=== PATIENT | female | born 1945 | race Hispanic/Latino ===

== ENCOUNTER 2017-04-20 11:25 | Inpatient (IN) | payer MEDICARE ==
[~2017-04-20] VITALS: Ht 167.6 cm; Wt 107.8 kg
[~2017-04-20 11:25] MED LIST: BENZ1TAB10 PO; BUSP10TA3 PO; CEFU500T67 PO; FURO-152 PO; HALO2TAB PO
[2017-04-20 11:49] LABS: BASOPHILS % (AUTO) 0.4 % (0.0-5.0); EOSINOPHILS % (AUTO) 2.6 % (0.0-8.0); HEMATOCRIT 36.8 % (36-48); LYMPHOCYTES % (AUTO) 41.9 % (21.0-51.0); MEAN CORPUSCULAR HGB CONC 33.6 g/dL (32.0-36.0); MEAN CORPUSCULAR VOLUME 89.2 fL (79-99); MONOCYTES % (AUTO) 16.6 % (3.0-13.0); NEUTROPHILS % (AUTO) 38.5 % (40.0-77.0); PLATELET COUNT (AUTO) 122 K/uL (130-400); RED BLOOD CELL COUNT(AUTO) 4.13 MIL/uL (4.00-5.50); RED CELL DISTRIBUTION WIDTH 13.7 % (11.0-15.5); WHITE BLOOD COUNT (AUTO) 5.5 K/uL (4.8-10.8)
[2017-04-20] MEDS ORDERED: DICYCLOMINE HCL 20 MG TAB ONE (11:53)
[2017-04-20 12:00] LABS: CREATININE 0.5 mg/dL (0.5-1.5); POTASSIUM 4.7 mmol/L (3.5-5.1)
[2017-04-20 12:06] LABS: ALBUMIN 2.6 g/dL (3.5-5.0); BILIRUBIN,DIRECT 0.2 mg/dL (0.0-0.3); BILIRUBIN,TOTAL 0.8 mg/dL (0.2-1.0); TOTAL PROTEIN, SERUM 7.1 g/dL (6.0-8.3)
[2017-04-20 15:07] LABS: APPEARANCE,URINE Clear (CLEAR); BILIRUBIN,URINE Negative (NEGATIVE); COLOR,URINE Yellow (YELLOW); GLUCOSE, URINE (UA) Negative (NEGATIVE); KETONES,URINE Negative (NEGATIVE); LEUKOCYTE ESTERASE ,URINE Negative (NEGATIVE); NITRATE,URINE Negative (NEGATIVE); OCCULT BLOOD,URINE Small (NEGATIVE); PH,URINE 6.5 (5.0-8.0); PROTEIN,URINE Negative (NEGATIVE)
[2017-04-20 15:17] LABS: BACTERIA,URINE None Seen /HPF (None Seen); RBC,URINE 0-1 /HPF (0-1); TRANSITIONAL EPI CELLS,URINE Moderate /LPF (None Seen); WBC,URINE None Seen /HPF (0-1)
[2017-04-20] MEDS ORDERED: LACTULOSE 20 GM/30 ML UDCUP PO PRN (15:30)
[2017-04-20] MEDS ORDERED: ACETAMINOPHEN 325 MG TAB PO PRN (15:30)
[2017-04-20] MEDS ORDERED: NITROGLYCERIN 0.4 MG SL TAB SL PRN (15:30)
[2017-04-20] MEDS ORDERED: ACETAMINOPHEN-CODEINE 300/30MG TAB PO PRN ×2 (15:30)
[2017-04-20] MEDS ORDERED: MORPHINE SULFATE 2 MG/ML 1ML SYG IV PRN (15:30)
[2017-04-20] MEDS ORDERED: MAGNESIUM HYDROXIDE 30 ML/UDCUP PO PRN (15:30)
[2017-04-20] MEDS ORDERED: GUAIFENESIN-DM 200/20 MG 10 ML PO PRN (15:30)
[2017-04-20] MEDS ORDERED: ONDANSETRON HCL 4 MG/2 ML VIAL IV PRN (15:30)
[2017-04-20] MEDS ORDERED: HYDRALAZINE HCL 20 MG/ML VIAL IV PRN (15:30)
[2017-04-20] MEDS ORDERED: MORPHINE SULFATE 4 MG/1ML SYG IV PRN (15:30)
[2017-04-20] MEDS ORDERED: MAG HYDROX/AL HYDROX/SIMETH ES 30 ML SUSP UDCUP PO PRN (15:30)
[2017-04-20] MEDS ORDERED: LEVOFLOXACIN 500 MG/D5W 100 ML 100 ML ONE (17:17)
[2017-04-20] MEDS: IPRATROPIUM/ALBUTEROL SULFATE 3 ML SOLUTION IH SCH ×2 (18:32→23:45)
[2017-04-20] MEDS ORDERED: IPRATROPIUM/ALBUTEROL SULFATE 3 ML SOLUTION IH ONE (23:39)
[2017-04-21] MEDS ORDERED: FAMOTIDINE/PF 20 MG/2 ML VIAL IV ONE ×2 (00:20→08:05)
[2017-04-21] MEDS ORDERED: ACETAMINOPHEN 325 MG TAB ONE ×2 (00:20→09:47)
[2017-04-21 05:41] LABS: HEMATOCRIT 32.5 % (36-48); MEAN CORPUSCULAR HEMOGLOBIN 29.6 pg (27.0-33.0); MEAN CORPUSCULAR HGB CONC 33.3 g/dL (32.0-36.0); PLATELET COUNT (AUTO) 123 K/uL (130-400); RED BLOOD CELL COUNT(AUTO) 3.66 MIL/uL (4.00-5.50); WHITE BLOOD COUNT (AUTO) 4.1 K/uL (4.8-10.8)
[2017-04-21 06:01] LABS: B-TYPE NATRIURETIC PEPTIDE 209 pg/mL (0-100)
[2017-04-21] MEDS: IPRATROPIUM/ALBUTEROL SULFATE 3 ML SOLUTION IH SCH ×3 (07:12→19:09)
[2017-04-21 08:57] LABS: INR 1.13 (0.85-1.15); PROTHROMBIN TIME 11.8 SEC (9.6-11.6)
[2017-04-21 11:30] VITALS: BP 136/70
[2017-04-21] MEDS ORDERED: GABA-529 PO (13:04)
[2017-04-21] MEDS ORDERED: LOSA25TA21 PO (13:04)
[2017-04-21] MEDS ORDERED: CARB-38 PO (13:04)
[2017-04-21] MEDS ORDERED: FURO20TA4 PO (13:04)
[2017-04-21 14:08] LABS: GLUCOSE,BODY FLUID 88 mg/dL (1-40)
[2017-04-21] MEDS: LEVOFLOXACIN 500 MG/D5W 100 ML 100 ML IV SCH ×2 (14:36→16:00)
[2017-04-21 16:00] VITALS: BP 147/62
[2017-04-21 16:01] LABS: SPECIMENTYPE,BODY FLUID PLEURAL
[2017-04-21 16:02] LABS: APPEARANCE BODY FLUID SLIGHTLY CLOUDY (CLEAR); BODY FLUID RBC 400 /cu. mm.; BODY FLUID WBC 207 /cu. mm.; COLOR,BODY FLUID YELLOW (LT YELLOW); TOTAL VOLUME,BODY FLUID 700 mL
[2017-04-21 16:21] LABS: BF LYMPHOCYTE 91 %
[2017-04-21 19:50] VITALS: BP 112/53
[2017-04-21] MEDS: FAMOTIDINE/PF 20 MG/2 ML VIAL IV SCH (21:00)
[2017-04-22 00:15] VITALS: BP 112/58
[2017-04-22] MEDS: FAMOTIDINE/PF 20 MG/2 ML VIAL IV SCH ×4 (00:22→21:36)
[2017-04-22] MEDS: IPRATROPIUM/ALBUTEROL SULFATE 3 ML SOLUTION IH SCH ×4 (00:39→19:21)
[2017-04-22 03:47] VITALS: BP 112/52
[2017-04-22 08:00] VITALS: BP 126/57
[2017-04-22] MEDS: FUROSEMIDE 10 MG/ML 2ML VIAL IV SCH ×2 (10:26→21:36)
[2017-04-22 12:00] VITALS: BP 104/66
[2017-04-22] MEDS: ACETAMINOPHEN 325 MG TAB PO PRN (12:50)
[2017-04-22] MEDS: CARBIDOPA-LEVODOPA 25-100 TAB PO SCH ×2 (14:54→21:35)
[2017-04-22] MEDS: LEVOFLOXACIN 500 MG/D5W 100 ML 100 ML IV SCH (14:54)
[2017-04-22 16:00] VITALS: BP 137/63
[2017-04-22 20:00] VITALS: BP 145/73
[2017-04-22] MEDS: GABAPENTIN 100 MG CAPSULE PO SCH (21:36)
[2017-04-23] VITALS (7 sets, daily range): BP systolic 119–148; BP diastolic 64–84
[2017-04-23] MEDS: IPRATROPIUM/ALBUTEROL SULFATE 3 ML SOLUTION IH SCH ×5 (01:27→23:30)
[2017-04-23 03:59] LABS: MEAN CORPUSCULAR HEMOGLOBIN 30.1 pg (27.0-33.0); MEAN CORPUSCULAR VOLUME 88.6 fL (79-99); PLATELET COUNT (AUTO) 105 K/uL (130-400); RED CELL DISTRIBUTION WIDTH 13.8 % (11.0-15.5); WHITE BLOOD COUNT (AUTO) 4.6 K/uL (4.8-10.8)
[2017-04-23 04:05] LABS: CREATININE 0.6 mg/dL (0.5-1.5)
[2017-04-23 04:27] LABS: B-TYPE NATRIURETIC PEPTIDE 161 pg/mL (0-100)
[2017-04-23] MEDS: CARBIDOPA-LEVODOPA 25-100 TAB PO SCH ×3 (09:22→21:16)
[2017-04-23] MEDS: FAMOTIDINE/PF 20 MG/2 ML VIAL IV SCH ×2 (09:22→21:16)
[2017-04-23] MEDS: GABAPENTIN 100 MG CAPSULE PO SCH ×2 (09:22→21:16)
[2017-04-23] MEDS: LOSARTAN 50 MG TABLET PO SCH (09:22)
[2017-04-23] MEDS: FUROSEMIDE 10 MG/ML 2ML VIAL IV SCH ×2 (09:26→21:15)
[2017-04-23] MEDS: LEVOFLOXACIN 500 MG/D5W 100 ML 100 ML IV SCH (16:37)
[2017-04-24] VITALS (9 sets, daily range): BP systolic 115–145; BP diastolic 51–96
[2017-04-24] MEDS: IPRATROPIUM/ALBUTEROL SULFATE 3 ML SOLUTION IH SCH ×3 (06:07→19:06)
[2017-04-24 06:49] LABS: HEMATOCRIT 33.8 % (36-48); MEAN CORPUSCULAR HEMOGLOBIN 30.1 pg (27.0-33.0); MEAN CORPUSCULAR HGB CONC 33.9 g/dL (32.0-36.0); MEAN CORPUSCULAR VOLUME 88.8 fL (79-99); PLATELET COUNT (AUTO) 104 K/uL (130-400); RED CELL DISTRIBUTION WIDTH 13.8 % (11.0-15.5)
[2017-04-24 07:00] LABS: CREATININE 0.6 mg/dL (0.5-1.5)
[2017-04-24] MEDS: LOSARTAN 50 MG TABLET PO SCH (09:25)
[2017-04-24] MEDS: FAMOTIDINE/PF 20 MG/2 ML VIAL IV SCH ×2 (09:25→22:32)
[2017-04-24] MEDS: GABAPENTIN 100 MG CAPSULE PO SCH ×2 (09:25→22:31)
[2017-04-24] MEDS: CARBIDOPA-LEVODOPA 25-100 TAB PO SCH ×3 (09:25→22:31)
[2017-04-24] MEDS: FUROSEMIDE 10 MG/ML 2ML VIAL IV SCH ×2 (09:39→22:32)
[2017-04-24 11:48] LABS: INR 1.14 (0.85-1.15); PROTHROMBIN TIME 11.9 SEC (9.6-11.6)
[2017-04-24] MEDS: LEVOFLOXACIN 500 MG/D5W 100 ML 100 ML IV SCH (16:49)
[2017-04-25] VITALS: BP 124/64
[2017-04-25] MEDS: IPRATROPIUM/ALBUTEROL SULFATE 3 ML SOLUTION IH SCH ×5 (00:18→23:49)
[2017-04-25 04:00] VITALS: BP 128/70
[2017-04-25 08:00] VITALS: BP 110/54
[2017-04-25] MEDS: FAMOTIDINE/PF 20 MG/2 ML VIAL IV SCH ×2 (10:40→21:14)
[2017-04-25] MEDS: LOSARTAN 50 MG TABLET PO SCH (10:41)
[2017-04-25] MEDS: FUROSEMIDE 10 MG/ML 2ML VIAL IV SCH ×2 (10:41→21:14)
[2017-04-25] MEDS: GABAPENTIN 100 MG CAPSULE PO SCH ×2 (10:41→21:14)
[2017-04-25 11:00] VITALS: BP 151/68
[2017-04-25] MEDS: CARBIDOPA-LEVODOPA 25-100 TAB PO SCH ×3 (11:01→21:14)
[2017-04-25 16:00] VITALS: BP 138/51
[2017-04-25] MEDS: LEVOFLOXACIN 500 MG/D5W 100 ML 100 ML IV SCH (17:56)
[2017-04-25 20:10] VITALS: BP 114/63
[2017-04-25] MEDS: ACETAMINOPHEN 325 MG TAB PO PRN (21:15)
[2017-04-26] VITALS (7 sets, daily range): BP systolic 111–136; BP diastolic 50–73
[2017-04-26 04:44] LABS: HEMATOCRIT 31.7 % (36-48); MEAN CORPUSCULAR HEMOGLOBIN 30.7 pg (27.0-33.0); MEAN CORPUSCULAR HGB CONC 34.8 g/dL (32.0-36.0); MEAN CORPUSCULAR VOLUME 88.3 fL (79-99); NUCLEATED RED BLOOD CELLS 0.1 % (0.0-0.19); PLATELET COUNT (AUTO) 121 K/uL (130-400); RED BLOOD CELL COUNT(AUTO) 3.59 MIL/uL (4.00-5.50); RED CELL DISTRIBUTION WIDTH 13.5 % (11.0-15.5); WHITE BLOOD COUNT (AUTO) 4.9 K/uL (4.8-10.8)
[2017-04-26 04:50] LABS: B-TYPE NATRIURETIC PEPTIDE 108 pg/mL (0-100)
[2017-04-26] MEDS: IPRATROPIUM/ALBUTEROL SULFATE 3 ML SOLUTION IH SCH ×4 (06:30→23:33)
[2017-04-26] MEDS: LOSARTAN 50 MG TABLET PO SCH (10:58)
[2017-04-26] MEDS: GABAPENTIN 100 MG CAPSULE PO SCH ×2 (10:58→21:48)
[2017-04-26] MEDS: CARBIDOPA-LEVODOPA 25-100 TAB PO SCH ×3 (10:58→21:48)
[2017-04-26] MEDS: FAMOTIDINE/PF 20 MG/2 ML VIAL IV SCH ×2 (10:59→21:48)
[2017-04-26] MEDS: FUROSEMIDE 10 MG/ML 2ML VIAL IV SCH (11:00)
[2017-04-26] MEDS: LEVOFLOXACIN 500 MG/D5W 100 ML 100 ML IV SCH (18:13)
[2017-04-26] MEDS: FUROSEMIDE 40 MG TABLET PO SCH (18:13)
[2017-04-26] MEDS ORDERED: SODIUM CHLORIDE 0.9% 250 ML IV ONE (22:31)
[2017-04-27 03:05] VITALS: BP 146/65
[2017-04-27] MEDS: IPRATROPIUM/ALBUTEROL SULFATE 3 ML SOLUTION IH SCH ×2 (06:22→11:02)
[2017-04-27 07:00] VITALS: BP 142/71
[2017-04-27] MEDS: FAMOTIDINE/PF 20 MG/2 ML VIAL IV SCH (09:06)
[2017-04-27] MEDS: LOSARTAN 50 MG TABLET PO SCH (09:07)
[2017-04-27] MEDS: FUROSEMIDE 40 MG TABLET PO SCH (09:08)
[2017-04-27] MEDS: GABAPENTIN 100 MG CAPSULE PO SCH (09:08)
[2017-04-27] MEDS ORDERED: LEVO500T2 PO (09:59)
[2017-04-27 11:00] VITALS: BP 136/64
[2017-04-27 16:00] VITALS: BP 118/63
== END 2017-04-27 15:55 | disposition home or self-care (01) | DRG 194 ==
LOC: EDH 11:25 → EDHIP 14:47 → OBSVTOIN 14:47 → 3BH 04-21 11:30
PROVIDERS: ADMIT Internal Medicine; ATTEND Internal Medicine
PROC: 0W9B3ZZ Drainage of Left Pleural Cavity, Percutaneous Approach (ICD-10-PCS; 2017-04-21)
PROC: 0W9B3ZZ Drainage of Left Pleural Cavity, Percutaneous Approach (ICD-10-PCS; principal; 2017-04-24)
DX: J18.9 Pneumonia, unspecified organism (principal); J90 Pleural effusion, not elsewhere classified; G20 Parkinson's disease; I50.9 Heart failure, unspecified; F20.9 Schizophrenia, unspecified; D64.9 Anemia, unspecified; K59.00 Constipation, unspecified; E66.9 Obesity, unspecified; G51.0 Bell's palsy; F31.9 Bipolar disorder, unspecified; Z86.73 Personal history of transient ischemic attack (TIA), and cerebral infarction without residual deficits; Z87.891 Personal history of nicotine dependence; Z68.38 Body mass index [BMI] 38.0-38.9, adult; Z98.49 Cataract extraction status, unspecified eye; Z28.21 Immunization not carried out because of patient refusal
CPT/HCPCS: 32554; 32555; 36415; 71045; 71046; 71250; 74176; 80048; 80076; 81001; 82945; 82948; 83615; 83690; 83880; 83986; 84157; 85025; 85027; 85610; 85730; 87040; 87071; 87205; 87804; 88108; 88305; 89051; 92610; 93306; 93970; 94640; 94664; J1940; J1956; J3490; J7030

== ENCOUNTER 2017-08-04 09:12 | Emergency (ER) | payer MEDICARE ==
[~2017-08-04 09:12] MED LIST changes: -BENZ1TAB10 PO; -BUSP10TA3 PO; +CARB-38 PO; -CEFU500T67 PO; -FURO-152 PO; +FURO20TA4 PO; +GABA-529 PO; -HALO2TAB PO; +LEVO500T2 PO; +LOSA25TA21 PO
[2017-08-04 09:48] LABS: APPEARANCE,URINE Clear (CLEAR); BILIRUBIN,URINE Negative (NEGATIVE); COLOR,URINE Yellow (YELLOW); GLUCOSE, URINE (UA) Negative (NEGATIVE); KETONES,URINE Negative (NEGATIVE); LEUKOCYTE ESTERASE ,URINE Trace (NEGATIVE); NITRATE,URINE Negative (NEGATIVE); OCCULT BLOOD,URINE Negative (NEGATIVE); PH,URINE 6.5 (5.0-8.0); PROTEIN,URINE Negative (NEGATIVE)
[2017-08-04 10:02] LABS: BACTERIA,URINE Rare /HPF (None Seen); SQUAMOUS EPITHELIAL CELL,UR Rare /HPF (0-2); WBC,URINE 0-1 /HPF (0-1)
[2017-08-04 10:22] LABS: INR 1.14 (0.85-1.15); PARTIAL THROMBOPLASTIN TIME 28.3 SEC (26.3-35.5); PROTHROMBIN TIME 11.9 SEC (9.6-11.6)
[2017-08-04 10:49] LABS: ALBUMIN 2.2 g/dL (3.5-5.0); BILIRUBIN,DIRECT 0.2 mg/dL (0.0-0.3); BILIRUBIN,TOTAL 0.5 mg/dL (0.2-1.0); CREATININE 0.6 mg/dL (0.5-1.5); POTASSIUM 3.5 mmol/L (3.5-5.1); TOTAL PROTEIN, SERUM 6.8 g/dL (6.0-8.3)
[2017-08-04 12:31] LABS: BASOPHILS % (AUTO) 0.5 % (0.0-5.0); EOSINOPHILS % (AUTO) 1.7 % (0.0-8.0); HEMATOCRIT 34.5 % (36-48); LYMPHOCYTES % (AUTO) 18.5 % (21.0-51.0); MEAN CORPUSCULAR HEMOGLOBIN 29.5 pg (27.0-33.0); MEAN CORPUSCULAR HGB CONC 33.7 g/dL (32.0-36.0); MEAN CORPUSCULAR VOLUME 87.6 fL (79-99); MONOCYTES % (AUTO) 16.5 % (3.0-13.0); NEUTROPHILS % (AUTO) 62.8 % (40.0-77.0); PLATELET COUNT (AUTO) 148 K/uL (130-400); RED BLOOD CELL COUNT(AUTO) 3.94 MIL/uL (4.00-5.50); RED CELL DISTRIBUTION WIDTH 13.9 % (11.0-15.5)
== END 2017-08-04 13:29 | disposition home or self-care (01) ==
LOC: EDH 09:12
DX: K64.4 Residual hemorrhoidal skin tags (principal); I50.9 Heart failure, unspecified; G20 Parkinson's disease; Z86.73 Personal history of transient ischemic attack (TIA), and cerebral infarction without residual deficits; Z87.891 Personal history of nicotine dependence
CPT/HCPCS: 36415; 80048; 80076; 81001; 85025; 85610; 85730

== ENCOUNTER 2017-09-07 15:54 | Inpatient (IN) | payer MEDICARE ==
[~2017-09-07] VITALS: Ht 157.5 cm; Wt 111.1 kg
[2017-09-07 16:37] LABS: BASOPHILS % (AUTO) 0.7 % (0.0-5.0); EOSINOPHILS % (AUTO) 3.2 % (0.0-8.0); HEMATOCRIT 35.5 % (36-48); LYMPHOCYTES % (AUTO) 37.9 % (21.0-51.0); MEAN CORPUSCULAR HEMOGLOBIN 29.5 pg (27.0-33.0); MEAN CORPUSCULAR HGB CONC 33.9 g/dL (32.0-36.0); MONOCYTES % (AUTO) 18.2 % (3.0-13.0); NUCLEATED RED BLOOD CELLS 0.1 % (0.0-0.19); PLATELET COUNT (AUTO) 170 K/uL (130-400); RED BLOOD CELL COUNT(AUTO) 4.08 MIL/uL (4.00-5.50); RED CELL DISTRIBUTION WIDTH 13.9 % (11.0-15.5); WHITE BLOOD COUNT (AUTO) 6.3 K/uL (4.8-10.8)
[2017-09-07] MEDS ORDERED: HYOSCYAMINE SULFATE 0.125 MG TAB.SUBL SL ONE (16:40)
[2017-09-07] MEDS ORDERED: ONDANSETRON HCL 4 MG/2 ML VIAL ONE (16:46)
[2017-09-07] MEDS ORDERED: MORPHINE SULFATE 4 MG/1ML SYG ONE ×2 (16:47→22:25)
[2017-09-07 16:53] LABS: CREATININE 0.7 mg/dL (0.5-1.5); POTASSIUM 4.3 mmol/L (3.5-5.1)
[2017-09-07 16:58] LABS: ALBUMIN 2.3 g/dL (3.5-5.0); BILIRUBIN,TOTAL 0.4 mg/dL (0.2-1.0)
[2017-09-07 18:22] LABS: APPEARANCE,URINE CLEAR (CLEAR); BILIRUBIN,URINE NEGATIVE (NEGATIVE); COLOR,URINE YELLOW (YELLOW); GLUCOSE, URINE (UA) NEGATIVE (NEGATIVE); KETONES,URINE NEGATIVE (NEGATIVE); LEUKOCYTE ESTERASE ,URINE SMALL (NEGATIVE); NITRATE,URINE NEGATIVE (NEGATIVE); OCCULT BLOOD,URINE TRACE-LYSED (NEGATIVE); PROTEIN,URINE NEGATIVE (NEGATIVE); UROBILINOGEN,URINE 0.2 mg/dL (0.2-1.0)
[2017-09-07 19:27] LABS: BACTERIA,URINE Few /HPF (None Seen); SQUAMOUS EPITHELIAL CELL,UR Few /HPF (0-2)
[2017-09-07 19:28] LABS: AMORPHOUS SEDIMENT,UR Rare /LPF (None Seen)
[2017-09-07] MEDS ORDERED: CEPHALEXIN 500 MG CAPSULE ONE (19:57)
[2017-09-07] MEDS ORDERED: IPRATROPIUM/ALBUTEROL SULFATE 3 ML SOLUTION IH PRN ×2 (20:00)
[2017-09-07] MEDS ORDERED: ONDANSETRON HCL MDV 20ML 2 MG/ML VIAL IVP PRN (20:00)
[2017-09-07] MEDS ORDERED: NITROGLYCERIN 0.4 MG SL TAB SL PRN (20:00)
[2017-09-07] MEDS ORDERED: MORPHINE SULFATE 4 MG/1ML SYG IVP PRN (20:00)
[2017-09-07] MEDS ORDERED: POTASSIUM CHLORIDE 10% ELIXIR 20 MEQ/15 ML UDCUP PO PRN (20:00)
[2017-09-07] MEDS ORDERED: LIDOCAINE HCL-MPF 1% 2ML VIAL IJ PRN (20:00)
[2017-09-07] MEDS ORDERED: GUAIFENESIN-DM 200/20 MG 10 ML PO PRN (20:00)
[2017-09-07] MEDS ORDERED: CLONIDINE HCL 0.1 MG TABLET PO PRN (20:00)
[2017-09-07] MEDS ORDERED: POTASSIUM CHLORIDE 20MEQ/100ML 100 ML IV PRN (20:00)
[2017-09-07] MEDS ORDERED: ACETAMINOPHEN 325 MG TAB PO PRN (20:00)
[2017-09-07] MEDS ORDERED: POTASSIUM CHLORIDE 20 MEQ ERTAB PO PRN (20:00)
[2017-09-07] MEDS: FAMOTIDINE 20MG TAB 20 MG TAB PO SCH (21:00)
[2017-09-08] VITALS (7 sets, daily range): BP systolic 103–149; BP diastolic 44–73
[2017-09-08] MEDS ORDERED: LACTULOSE 20 GM/30 ML UDCUP PO PRN (01:00)
[2017-09-08] MEDS ORDERED: SODIUM CHLORIDE 0.9% 500ML 500 ML IV ONE (02:47)
[2017-09-08] MEDS: LEVOFLOXACIN 500 MG/D5W 100 ML 100 ML IV SCH (02:51)
[2017-09-08 04:25] LABS: HEMATOCRIT 32.9 % (36-48); MEAN CORPUSCULAR HEMOGLOBIN 29.6 pg (27.0-33.0); MEAN CORPUSCULAR HGB CONC 33.9 g/dL (32.0-36.0); MEAN CORPUSCULAR VOLUME 87.1 fL (79-99); PLATELET COUNT (AUTO) 136 K/uL (130-400); RED BLOOD CELL COUNT(AUTO) 3.78 MIL/uL (4.00-5.50); RED CELL DISTRIBUTION WIDTH 14.2 % (11.0-15.5); WHITE BLOOD COUNT (AUTO) 4.9 K/uL (4.8-10.8)
[2017-09-08 04:40] LABS: INR 1.12 (0.85-1.15); PROTHROMBIN TIME 11.7 SEC (9.6-11.6)
[2017-09-08 04:41] LABS: CREATININE 0.7 mg/dL (0.5-1.5); POTASSIUM 4.2 mmol/L (3.5-5.1)
[2017-09-08] MEDS: FAMOTIDINE 20MG TAB 20 MG TAB PO SCH ×2 (09:09→20:18)
[2017-09-08] MEDS ORDERED: OMEP40CA37 PO (09:42)
[2017-09-08] MEDS ORDERED: FERR325T22 PO (09:42)
[2017-09-08] MEDS: ACETAMINOPHEN 325 MG TAB PO PRN (10:14)
[2017-09-08] MEDS: METHYLPREDNISOLONE SOD SUCC 125MG/2ML VIAL IVP SCH ×2 (12:32→20:18)
[2017-09-08] MEDS: CARBIDOPA-LEVODOPA 25-100 TAB PO SCH ×2 (14:00→20:18)
[2017-09-08] MEDS: IPRATROPIUM/ALBUTEROL SULFATE 3 ML SOLUTION IH SCH ×3 (14:17→23:22)
[2017-09-08] MEDS: GABAPENTIN 100 MG CAPSULE PO SCH (20:18)
[2017-09-09] MEDS: LEVOFLOXACIN 500 MG/D5W 100 ML 100 ML IV SCH (02:04)
[2017-09-09 03:00] VITALS: BP 129/54
[2017-09-09 04:25] LABS: HEMATOCRIT 33.6 % (36-48); LYMPHOCYTES % (AUTO) 16.7 % (21.0-51.0); MEAN CORPUSCULAR HEMOGLOBIN 30.6 pg (27.0-33.0); MEAN CORPUSCULAR HGB CONC 35.4 g/dL (32.0-36.0); MEAN CORPUSCULAR VOLUME 86.6 fL (79-99); NEUTROPHILS % (AUTO) 83.3 % (40.0-77.0); NUCLEATED RED BLOOD CELLS 0.1 % (0.0-0.19); PLATELET COUNT (AUTO) 151 K/uL (130-400); RED BLOOD CELL COUNT(AUTO) 3.88 MIL/uL (4.00-5.50); RED CELL DISTRIBUTION WIDTH 14.2 % (11.0-15.5); WHITE BLOOD COUNT (AUTO) 4.8 K/uL (4.8-10.8)
[2017-09-09 04:55] LABS: B-TYPE NATRIURETIC PEPTIDE 677 pg/mL (0-100)
[2017-09-09 05:26] LABS: ALBUMIN 2.2 g/dL (3.5-5.0); BILIRUBIN,TOTAL 0.5 mg/dL (0.2-1.0); CREATININE 0.7 mg/dL (0.5-1.5); MAGNESIUM 2.1 mg/dL (1.80-2.40); POTASSIUM 4.3 mmol/L (3.5-5.1)
[2017-09-09] MEDS: METHYLPREDNISOLONE SOD SUCC 125MG/2ML VIAL IVP SCH ×3 (05:50→22:13)
[2017-09-09] MEDS: IPRATROPIUM/ALBUTEROL SULFATE 3 ML SOLUTION IH SCH ×3 (06:04→18:21)
[2017-09-09 07:00] VITALS: BP 132/48
[2017-09-09] MEDS ORDERED: ISOVUE-370 50ML VIAL IV ONE (08:34)
[2017-09-09] MEDS: FERROUS SULFATE 325 MG TABLET.DR PO SCH (09:45)
[2017-09-09] MEDS: FAMOTIDINE 20MG TAB 20 MG TAB PO SCH ×2 (09:45→22:12)
[2017-09-09] MEDS: GABAPENTIN 100 MG CAPSULE PO SCH ×2 (09:45→22:12)
[2017-09-09] MEDS: CARBIDOPA-LEVODOPA 25-100 TAB PO SCH ×3 (09:45→22:12)
[2017-09-09] MEDS: LOSARTAN 50 MG TABLET PO SCH (09:45)
[2017-09-09] MEDS: FUROSEMIDE 20 MG TABLET PO SCH (09:45)
[2017-09-09] MEDS: ENOXAPARIN SODIUM 40 MG/0.4 ML SYRINGE SQ SCH (09:46)
[2017-09-09] MEDS: ACETAMINOPHEN 325 MG TAB PO PRN ×2 (10:52→19:54)
[2017-09-09 11:00] VITALS: BP 145/64
[2017-09-09 15:28] VITALS: BP 132/60
[2017-09-09 19:00] VITALS: BP 129/60
[2017-09-10] VITALS: BP 154/81
[2017-09-10] MEDS: IPRATROPIUM/ALBUTEROL SULFATE 3 ML SOLUTION IH SCH ×4 (00:45→18:30)
[2017-09-10] MEDS: LEVOFLOXACIN 500 MG/D5W 100 ML 100 ML IV SCH (01:32)
[2017-09-10 04:00] VITALS: BP 153/66
[2017-09-10 07:00] VITALS: BP 123/60
[2017-09-10] MEDS: FUROSEMIDE 20 MG TABLET PO SCH (09:32)
[2017-09-10] MEDS: LOSARTAN 50 MG TABLET PO SCH (09:32)
[2017-09-10] MEDS: GABAPENTIN 100 MG CAPSULE PO SCH ×2 (09:33→21:34)
[2017-09-10] MEDS: FERROUS SULFATE 325 MG TABLET.DR PO SCH (09:33)
[2017-09-10] MEDS: CARBIDOPA-LEVODOPA 25-100 TAB PO SCH ×3 (09:33→21:34)
[2017-09-10] MEDS: FAMOTIDINE 20MG TAB 20 MG TAB PO SCH ×2 (09:33→21:34)
[2017-09-10] MEDS: METHYLPREDNISOLONE SOD SUCC 125MG/2ML VIAL IVP SCH ×2 (09:34→21:33)
[2017-09-10] MEDS: ENOXAPARIN SODIUM 40 MG/0.4 ML SYRINGE SQ SCH (09:35)
[2017-09-10 11:00] VITALS: BP 128/59
[2017-09-10 15:30] VITALS: BP 135/70
[2017-09-10 19:00] VITALS: BP 140/69
[2017-09-11] VITALS: BP 143/73
[2017-09-11] MEDS: IPRATROPIUM/ALBUTEROL SULFATE 3 ML SOLUTION IH SCH ×4 (00:27→18:42)
[2017-09-11 04:00] VITALS: BP 153/59
[2017-09-11 05:44] LABS: HEMATOCRIT 34.8 % (36-48); MEAN CORPUSCULAR HEMOGLOBIN 29.8 pg (27.0-33.0); MEAN CORPUSCULAR HGB CONC 34.4 g/dL (32.0-36.0); MEAN CORPUSCULAR VOLUME 86.8 fL (79-99); PLATELET COUNT (AUTO) 147 K/uL (130-400); RED BLOOD CELL COUNT(AUTO) 4.01 MIL/uL (4.00-5.50); RED CELL DISTRIBUTION WIDTH 14.3 % (11.0-15.5); WHITE BLOOD COUNT (AUTO) 9.4 K/uL (4.8-10.8)
[2017-09-11 05:57] LABS: CREATININE 0.7 mg/dL (0.5-1.5); MAGNESIUM 2.2 mg/dL (1.80-2.40); PHOSPHORUS 2.8 mg/dL (2.5-4.9); POTASSIUM 5.1 mmol/L (3.5-5.1)
[2017-09-11 07:00] VITALS: BP 128/92
[2017-09-11] MEDS: LOSARTAN 50 MG TABLET PO SCH (09:29)
[2017-09-11] MEDS: FAMOTIDINE 20MG TAB 20 MG TAB PO SCH ×2 (09:29→21:51)
[2017-09-11] MEDS: FERROUS SULFATE 325 MG TABLET.DR PO SCH (09:29)
[2017-09-11] MEDS: CARBIDOPA-LEVODOPA 25-100 TAB PO SCH ×3 (09:29→21:51)
[2017-09-11] MEDS: FUROSEMIDE 20 MG TABLET PO SCH (09:29)
[2017-09-11] MEDS: GABAPENTIN 100 MG CAPSULE PO SCH ×2 (09:29→21:51)
[2017-09-11] MEDS: ENOXAPARIN SODIUM 40 MG/0.4 ML SYRINGE SQ SCH (09:33)
[2017-09-11] MEDS: METHYLPREDNISOLONE SOD SUCC 125MG/2ML VIAL IVP SCH ×2 (09:55→21:51)
[2017-09-11 11:00] VITALS: BP 111/61
[2017-09-11] MEDS: LEVOFLOXACIN 500 MG/D5W 100 ML 100 ML IV SCH (12:16)
[2017-09-11] MEDS ORDERED: LEVO750T46 PO (15:32)
[2017-09-11] MEDS ORDERED: ALBU8.5H8 IH (15:32)
[2017-09-11] MEDS ORDERED: PRED20TA3 PO (15:32)
[2017-09-11 15:33] VITALS: BP 143/50
[2017-09-11 19:00] VITALS: BP 142/67
[2017-09-12] VITALS: BP 150/86
[2017-09-12] MEDS: IPRATROPIUM/ALBUTEROL SULFATE 3 ML SOLUTION IH SCH ×2 (00:01→06:38)
[2017-09-12 04:00] VITALS: BP 137/60
[2017-09-12 08:07] VITALS: BP 100/67
[2017-09-12] MEDS: LEVOFLOXACIN 500 MG/D5W 100 ML 100 ML IV SCH (08:15)
[2017-09-12] MEDS: METHYLPREDNISOLONE SOD SUCC 125MG/2ML VIAL IVP SCH (08:38)
[2017-09-12] MEDS: FAMOTIDINE 20MG TAB 20 MG TAB PO SCH (08:38)
[2017-09-12] MEDS: GABAPENTIN 100 MG CAPSULE PO SCH (08:38)
[2017-09-12] MEDS: FUROSEMIDE 20 MG TABLET PO SCH (08:39)
[2017-09-12] MEDS: CARBIDOPA-LEVODOPA 25-100 TAB PO SCH (08:39)
[2017-09-12] MEDS: FERROUS SULFATE 325 MG TABLET.DR PO SCH (08:39)
[2017-09-12] MEDS: LOSARTAN 50 MG TABLET PO SCH (08:39)
[2017-09-12] MEDS: ENOXAPARIN SODIUM 40 MG/0.4 ML SYRINGE SQ SCH (08:40)
[2017-09-12 11:51] VITALS: BP 156/72
== END 2017-09-12 12:05 | disposition home or self-care (01) | DRG 689 ==
LOC: EDH 15:54 → OBSVTOIN 19:35 → EDHIP 19:35 → 3BH 09-08 00:50
PROVIDERS: ADMIT Internal Medicine; ATTEND Internal Medicine
DX: N39.0 Urinary tract infection, site not specified (principal); J18.1 Lobar pneumonia, unspecified organism; G20 Parkinson's disease; I50.32 Chronic diastolic (congestive) heart failure; I69.351 Hemiplegia and hemiparesis following cerebral infarction affecting right dominant side; F20.9 Schizophrenia, unspecified; R13.10 Dysphagia, unspecified; E44.1 Mild protein-calorie malnutrition; J98.11 Atelectasis; F31.9 Bipolar disorder, unspecified; G51.0 Bell's palsy; Z87.891 Personal history of nicotine dependence; Z98.49 Cataract extraction status, unspecified eye
CPT/HCPCS: 36415; 71250; 71260; 74176; 76770; 80048; 80053; 81001; 82150; 83690; 83735; 83880; 84100; 85025; 85027; 85610; 87088; 93005; 94640; 94664; 97039; J1650; J1956; J2270; J2405; J2930; J7040; Q9967

== ENCOUNTER → 2019-05-01 | Outpatient (CLI) | payer OTHER ==
[2019-05-01] VITALS (11 sets, daily range): BP systolic 106–139; BP diastolic 50–119
[~2019-05-01] MED LIST changes: +ACET325T51 PO; +ALBU0.63 IH; +CARB1TAB20 PO; +CEPH500C2 PO; +CEPH500T PO; +FERR-6 PO; +FERR325T22 PO; +FURO20TA6 IV; +FURO20TA6 PO; +FURO40SO4 IVP; +GUAI100S13 PO; +HYDR25SU7 RC; +IPRA0.2S54 IH; +IPRATROPIUM/ALBUTEROL SULFATE 3 ML SOLUTION IH ONE; -LEVO500T2 PO; -LOSA25TA21 PO; +LOSA25TA41 PO; +NYST100P2 MC; +OMEP40CA13 PO; +PANT40I IV; +POTA20TA12 PO; +PROPOFOL 10 MG/ML 20ML VIAL IV ONE; +SODIUM CHLORIDE 0.9% 1000ML 1,000 ML IV ONE
== END | disposition home or self-care (01) ==
LOC: MERGE 11:00 → EDBD 11:00 → ENDO 11:00
PROVIDERS: ATTEND Internal Medicine Gastroenterology
DX: K92.2 Gastrointestinal hemorrhage, unspecified (principal); D62 Acute posthemorrhagic anemia; F31.9 Bipolar disorder, unspecified; I11.0 Hypertensive heart disease with heart failure; I50.9 Heart failure, unspecified; I25.10 Atherosclerotic heart disease of native coronary artery without angina pectoris; I25.2 Old myocardial infarction; F20.89 Other schizophrenia; Z79.899 Other long term (current) drug therapy; Z79.2 Long term (current) use of antibiotics
CPT/HCPCS: 44360; 94640; A4216; A4222; A4223; A4335; A4606; A4615; A4663; J2704; J7030 ×2

== ENCOUNTER → 2020-10-07 | Outpatient (CLI) | payer MEDICARE ==
[~2020-10-07] MED LIST changes: -CARB1TAB20 PO; -CEPH500T PO; -FERR325T22 PO; -FURO20TA4 PO; -FURO20TA6 IV; -FURO20TA6 PO; -IPRATROPIUM/ALBUTEROL SULFATE 3 ML SOLUTION IH ONE; -OMEP40CA13 PO; +OMEP40CA21 PO; -PROPOFOL 10 MG/ML 20ML VIAL IV ONE; -SODIUM CHLORIDE 0.9% 1000ML 1,000 ML IV ONE
== END | disposition home or self-care (01) ==
LOC: RAH 13:44
PROVIDERS: ATTEND Internal Medicine Cardiovascular Disease
DX: S22.080A Wedge compression fracture of T11-T12 vertebra, initial encounter for closed fracture (principal); I50.32 Chronic diastolic (congestive) heart failure; I51.7 Cardiomegaly; M40.299 Other kyphosis, site unspecified; X58.XXXA Exposure to other specified factors, initial encounter; Y93.89 Activity, other specified; Y92.89 Other specified places as the place of occurrence of the external cause; Y99.8 Other external cause status
CPT/HCPCS: 71046

== ENCOUNTER → 2020-10-08 | Outpatient (CLI) | payer MEDICARE | END | disposition home or self-care (01) | LOC: SHCH 15:29 | PROVIDERS: ATTEND Internal Medicine Cardiovascular Disease | DX: I50.32 Chronic diastolic (congestive) heart failure (principal) | CPT/HCPCS: 93306; 93356 ==

== ENCOUNTER 2021-09-15 14:21 | Emergency (ER) | payer MEDICARE ==
[~2021-09-15 14:21] MED LIST changes: +POTA-192 PO; -POTA20TA12 PO
[2021-09-15 14:26] VITALS: BP 148/75
[2021-09-15] MEDS ORDERED: CEFTRIAXONE 1G VIAL IVP ONE (15:00)
[2021-09-15] MEDS ORDERED: AZITHROMYCIN 250 MG TABLET PO ONE (15:00)
[2021-09-15] MEDS ORDERED: IPRATROPIUM/ALBUTEROL SULFATE 3 ML SOLUTION IH ONE (15:00)
[2021-09-15] MEDS ORDERED: FUROSEMIDE 40MG VIAL IV ONE (15:00)
[2021-09-15] MEDS ORDERED: ALBUTEROL 0.083% 2.5 MG/3 ML INH IH ONE (15:00)
[2021-09-15 15:09] LABS: BASOPHILS % (AUTO) 0.7 % (0.0-5.0); LYMPHOCYTES % (AUTO) 42.4 % (21.0-51.0); MEAN CORPUSCULAR HEMOGLOBIN 29.1 pg (27.0-33.0); MEAN CORPUSCULAR VOLUME 88.2 fL (79-99); NEUTROPHILS % (AUTO) 32.7 % (40.0-77.0); PLATELET COUNT (AUTO) 105 K/uL (130-400); RED BLOOD CELL COUNT(AUTO) 3.74 MIL/uL (4.00-5.50); RED CELL DISTRIBUTION WIDTH 13.7 % (11.0-15.5); WHITE BLOOD COUNT (AUTO) 4.5 K/uL (4.8-10.8)
[2021-09-15 15:21] LABS: CREATININE 0.8 mg/dL (0.5-1.5); POTASSIUM 4.5 mmol/L (3.5-5.1)
[2021-09-15 15:25] LABS: ALBUMIN 2.5 g/dL (3.5-5.0); BILIRUBIN,TOTAL 0.6 mg/dL (0.2-1.0); MAGNESIUM 1.9 mg/dL (1.80-2.40); TOTAL PROTEIN, SERUM 6.6 g/dL (6.0-8.3)
[2021-09-15 15:31] LABS: B-TYPE NATRIURETIC PEPTIDE 377 pg/mL (0-100)
[2021-09-15] MEDS ORDERED: AMOX1TAB16 PO (16:46)
[2021-09-15] MEDS ORDERED: ALBU8.5H8 IH (16:46)
== END 2021-09-15 17:00 | disposition home or self-care (01) ==
LOC: EDH 14:21
DX: J40 Bronchitis, not specified as acute or chronic (principal); I87.2 Venous insufficiency (chronic) (peripheral); L03.116 Cellulitis of left lower limb; L03.115 Cellulitis of right lower limb; Z20.822 Contact with and (suspected) exposure to COVID-19
CPT/HCPCS: 36415; 71045; 80053; 82550; 83605; 83735; 83880; 84484; 85025; 87040 ×2; 87635; 87804 ×2; 93005; 93970; 94640 ×2; 96374; 96375; 99285; C9803; J0696; J1940

== ENCOUNTER 2022-02-17 11:03 | Emergency (ER) | payer MEDICARE ==
[~2022-02-17] VITALS: Ht 160 cm; Wt 90.7 kg
[~2022-02-17 11:03] MED LIST changes: +ALBU8.5H8 IH; +AMOX1TAB16 PO
[2022-02-17 11:46] LABS: BASOPHILS % (AUTO) 0.6 % (0.0-5.0); EOSINOPHILS % (AUTO) 2.8 % (0.0-8.0); HEMATOCRIT 32.8 % (36-48); LYMPHOCYTES % (AUTO) 29.8 % (21.0-51.0); MEAN CORPUSCULAR HEMOGLOBIN 29.2 pg (27.0-33.0); MEAN CORPUSCULAR HGB CONC 32.3 g/dL (32.0-36.0); MEAN CORPUSCULAR VOLUME 90.4 fL (79-99); MONOCYTES % (AUTO) 15.7 % (3.0-13.0); NEUTROPHILS % (AUTO) 50.9 % (40.0-77.0); PLATELET COUNT (AUTO) 103 K/uL (130-400); RED BLOOD CELL COUNT(AUTO) 3.63 MIL/uL (4.00-5.50); RED CELL DISTRIBUTION WIDTH 13.5 % (11.0-15.5); WHITE BLOOD COUNT (AUTO) 4.7 K/uL (4.8-10.8)
[2022-02-17 11:59] LABS: ALBUMIN 2.5 g/dL (3.5-5.0); TOTAL PROTEIN, SERUM 6.3 g/dL (6.0-8.3)
[2022-02-17] MEDS ORDERED: FUROSEMIDE 40MG VIAL IV ONE (12:00)
[2022-02-17 12:05] LABS: B-TYPE NATRIURETIC PEPTIDE 354 pg/mL (0-100)
[2022-02-17] MEDS ORDERED: CEFTRIAXONE 1G VIAL IVP ONE (13:30)
[2022-02-17 14:56] VITALS: BP 97/56
[2022-02-17] MEDS ORDERED: CEFU500T67 PO (16:07)
== END 2022-02-17 16:35 | disposition home or self-care (01) ==
LOC: EDH 11:03
DX: L03.116 Cellulitis of left lower limb (principal); L03.115 Cellulitis of right lower limb; L30.9 Dermatitis, unspecified; I87.2 Venous insufficiency (chronic) (peripheral); I50.9 Heart failure, unspecified; F20.9 Schizophrenia, unspecified; Z04.9 Encounter for examination and observation for unspecified reason; Z79.899 Other long term (current) drug therapy
CPT/HCPCS: 99285; 84484; 80053; 83880; 85025; 86140; 36415; 93970; 96374; 96375; 93005; J0696; J1940

== ENCOUNTER 2022-04-01 14:10 | Emergency (ER) | payer MEDICARE ==
[~2022-04-01] VITALS: Ht 149.9 cm; Wt 81.6 kg
[~2022-04-01 14:10] MED LIST changes: +CEFU500T67 PO
[2022-04-01 15:05] LABS: BASOPHILS % (AUTO) 0.6 % (0.0-5.0); EOSINOPHILS % (AUTO) 5.2 % (0.0-8.0); HEMATOCRIT 31.9 % (36-48); LYMPHOCYTES % (AUTO) 36.6 % (21.0-51.0); MEAN CORPUSCULAR HEMOGLOBIN 29.1 pg (27.0-33.0); MEAN CORPUSCULAR HGB CONC 33.5 g/dL (32.0-36.0); MEAN CORPUSCULAR VOLUME 86.7 fL (79-99); MONOCYTES % (AUTO) 19.2 % (3.0-13.0); NEUTROPHILS % (AUTO) 38.2 % (40.0-77.0); PLATELET COUNT (AUTO) 124 K/uL (130-400); RED BLOOD CELL COUNT(AUTO) 3.68 MIL/uL (4.00-5.50); RED CELL DISTRIBUTION WIDTH 13.6 % (11.0-15.5); WHITE BLOOD COUNT (AUTO) 5.2 K/uL (4.8-10.8)
[2022-04-01 15:18] LABS: APPEARANCE,URINE CLEAR (CLEAR); BILIRUBIN,URINE NEGATIVE (NEGATIVE); COLOR,URINE LIGHT-YELLOW (YELLOW); GLUCOSE, URINE (UA) NEGATIVE (NEGATIVE); KETONES,URINE NEGATIVE (NEGATIVE); LEUKOCYTE ESTERASE ,URINE NEGATIVE Leu/uL (NEGATIVE); NITRATE,URINE NEGATIVE (NEGATIVE); OCCULT BLOOD,URINE NEGATIVE (NEGATIVE); PROTEIN,URINE NEGATIVE (NEGATIVE); UROBILINOGEN,URINE 0.2 mg/dL (0.2-1.0)
[2022-04-01 15:21] LABS: CREATININE 1.3 mg/dL (0.5-1.5); POTASSIUM 4.6 mmol/L (3.5-5.1)
[2022-04-01 15:26] LABS: ALBUMIN 2.6 g/dL (3.5-5.0); TOTAL PROTEIN, SERUM 6.7 g/dL (6.0-8.3)
[2022-04-01 15:43] LABS: B-TYPE NATRIURETIC PEPTIDE 337 pg/mL (0-100)
[2022-04-01] MEDS ORDERED: ASPI-1005 PO (16:18)
[2022-04-01 18:55] VITALS: BP 122/68
[2022-04-07] MEDS ORDERED: IRON (20:27)
[2022-04-07] MEDS ORDERED: FURO20TA4 PO (20:27)
== END 2022-04-01 18:53 | disposition home or self-care (01) ==
LOC: EDH 14:10
DX: I87.2 Venous insufficiency (chronic) (peripheral) (principal); I50.9 Heart failure, unspecified; F20.9 Schizophrenia, unspecified; G20 Parkinson's disease; Z79.82 Long term (current) use of aspirin; Z79.899 Other long term (current) drug therapy
CPT/HCPCS: 36415; 80053; 81003; 83880; 84484; 85025; 93005; 93971